=== PATIENT | female | born 1985 | race Caucasian/White ===

== ENCOUNTER 2021-04-03 11:34 | Emergency (ER) | payer MEDICAID ==
[~2021-04-03] VITALS: Ht 172.7 cm; Wt 108.9 kg
[2021-04-03 11:44] VITALS: BP_SYST 133
[2021-04-03] MEDS ORDERED: LIDOCAINE 1% 10 MG/ML, 20 ML MDV INJ ONE (12:00)
[2021-04-03] MEDS ORDERED: CEPH500C2 PO (12:40)
[2021-04-03 13:40] VITALS: BP_SYST 133
== END 2021-04-03 13:08 | disposition home or self-care (01) ==
LOC: SED 11:34
DX: S30.861A Insect bite (nonvenomous) of abdominal wall, initial encounter (principal); L02.211 Cutaneous abscess of abdominal wall; W57.XXXA Bitten or stung by nonvenomous insect and other nonvenomous arthropods, initial encounter; Y93.89 Activity, other specified; Y92.89 Other specified places as the place of occurrence of the external cause; Y99.8 Other external cause status
CPT/HCPCS: 10060; 99283; J2001

== ENCOUNTER 2021-04-05 20:32 | Emergency (ER) | payer MEDICAID ==
[~2021-04-05] VITALS: Ht 170.2 cm; Wt 104.3 kg
[2021-04-05 20:32] VITALS: BP_SYST 124
[~2021-04-05 20:32] MED LIST: CEPH500C2 PO
== END 2021-04-05 22:00 | disposition home or self-care (01) ==
LOC: SED 20:32
DX: Z48.00 Encounter for change or removal of nonsurgical wound dressing (principal)
CPT/HCPCS: 99282